=== PATIENT | male | born 1960 | race Caucasian/White ===

== ENCOUNTER 2023-08-10 17:20 | Emergency (ER) | payer BC, SELFPAY ==
[2023-08-10 17:29] VITALS: BP 113/65; BP 118/75; PULSE 66; PULSE 69; RESP 12; TEMP 36.5; O2SAT 95; O2SAT 98; BMI 28.5
--- NOTE | 2023-08-10 17:33 | ECG_ITS ---
Test Reason : NEAR SYNCOPE Blood Pressure : / mmHG Vent. Rate : 065 BPM Atrial Rate : 065 BPM P-R Int : 192 ms QRS Dur : 092 ms QT Int : 380 ms P-R-T Axes : 053 050 002 degrees QTc Int : 395 ms Normal sinus rhythm ST elevation in Anterior leads Cannot rule out Inferior infarct , age undetermined Abnormal ECG No previous ECGs available Referred By: Elizabeth Hollis Electronically Signed By:ERICA GILMORE
[2023-08-10 17:40] LABS: Glucose, Whole Blood 81 mg/dL (60-115)
--- NOTE | 2023-08-10 17:42 | ED_ITS ---
HPI - Syncope General Chief Complaint: Syncope Stated Complaint: near syncope, cool, pale, diaphoretic Time Seen by Provider: 08/10/23 17:23 Source: patient Mode of arrival: EMS Limitations: no limitations History of Present Illness HPI narrative: 62 yo male with PMH of HTN and HLD here with c/o not eating much today and having a couple of dea's hard lemonade's he was at a democr[employer] sitting on a porch and went to go inside to eat when he felt woozy and off like he was going to pass out. His vision narrowed. He did not have chest pain. A friend saw him and helped him to the ground No trauma. No LOC and was lowered to the ground. He denies change in medications, no recent CP/SOB , infections. He has no had this happen before right now he feels better just nauseated. Recently being worked up at [employer] for AA - just had US. complaint: other (near syncope) Onset (ago): minute(s) (just prior to a arrival ) Duration of episode: 2 -: minutes(s) Prodromal symptoms: vision changes and lightheaded Witnessed: Yes - by Bystander Context: standing up Injuries sustained associated with event: none Current symptoms: nausea Treatments prior to arrival: none Related Data Allergies Allergy/AdvReac Type Severity Reaction Status Date / Time pollen extracts Allergy Itchy Eyes Verified 08/10/23 17:32 Review of Systems 2 Review of Systems: Constitutional : No Fever, No Chills, No Fatigue ENT/Mouth : No sore throat, No Rhinorrhea Eyes: No Eye Pain, No Swelling, No Redness Cardiovascular : No Chest Pain, No SOB, No Dyspnea on Exertion Respiratory : No Cough, No Sputum Gastrointestinal : pos Nausea, No Vomiting, No Diarrhea, No abdominal Pain Genitourinary : No Dysuria, No Urinary Frequency, No Hematuria, Musculoskeletal : No joint pain, No Myalgias, No Joint Swelling Skin : No Skin Lesions, No rash Neuro : No Weakness, No Numbness, No Dizziness, no Headache, pos near syncope Psych : No Anxiety/Panic, No Depression Heme/Lymph: No Bruising, No Bleeding,No Lymphadenopathy Endocrine : No Polyuria, No Polydipsia All other systems reviewed and are negative [facility] Past Medical History Attestation statement: The following information was validated with the patient. Medical History Hyperlipidemia HTN (hypertension) Social History Social History (Updated 08/10/23 @ 17:46 by Elizabeth Hollis DO) Alcohol intake: current Patient Tobacco Use Status: Never used Tobacco Advance Directives: No Advance Directives Information Provided: Yes Physical Exam 2 Vital Signs: Vital Signs: Last Vital Signs Temp 97.7 F 08/10/23 17:29 Pulse 66 08/10/23 17:54 Resp 12 08/10/23 17:29 BP 131/77 08/10/23 17:54 Pulse Ox 99 08/10/23 18:23 O2 Del Method Room Air 08/10/23 18:23 BMI result Body Mass Index 28.5 Appearance: Alert. Oriented X3. No acute distress. Eyes: Pupils equal, round and reactive to light. ENT: Pharynx normal. Neck: Normal inspection. Neck supple. CVS: Normal heart rate and rhythm. Pulses normal. Respiratory: No respiratory distress. Breath sounds normal. Abdomen: Soft and nontender. Skin: Skin warm and dry. Normal skin color. Normal skin turgor. Extremities: No lower extremity edema. No calf ttp Neuro: Oriented X 3. No motor deficit. No sensory deficit. Course Course Course Narrative: repeat troponin negative can be DC at this time. feels better stable for DC Medications Administered Discontinued Medications Generic Name Dose Route Start Last Admin Trade Name Freq PRN Reason Stop Dose Admin Sodium Chloride 1,000 mls @ 999 mls/hr 08/10/23 17:45 08/10/23 18:21 Ns IV 08/10/23 18:45 999 mls/hr .Q1H1M QUANG Administration Ondansetron HCl 4 mg 08/10/23 17:39 08/10/23 18:20 Ondansetron Hcl 4 Mg/2 Ml Vial IVPUSH 08/10/23 17:40 4 mg ONCE ONE Administration Medical Decision Making Medical Decision Making MDM Narrative: 62 yo male with PMH of HTN, HLD here with c/o near syncopal event no trauma did not eat today did drink ETOH - he has no CP/SOB and no adominal pain he is not toxic and neuro intact. At this time suspect vasovagal syncope no seizure activity reported either and he denies infectious symptoms will obtain labs, hydrate and EKG. Differential Diagnosis Differential Diagnoses: The differential diagnosis associated with the presentation includes dehydration, hypotension, lack of CP/SOB makes VTE/ACS unlikely Admission/Observation Consideration of admission/observation: Escalation of care including admission/observation considered negative workup stable for DC Lab Data MDM Lab Attestation statement: I reviewed the patient's lab results. 08/10/23 17:47 08/10/23 17:47 Labs: Lab Results 08/10/23 08/10/23 08/10/23 Range/Units 17:31 17:47 19:50 WBC 7.6 (4.8-10.8) X10*3/uL RBC 4.32 L (4.60-5.80) X10*6/uL Hgb 13.8 L (14.0-18.0) g/dl Hct 40.1 L (42.0-52.0) % MCV 92.8 (80.0-98.0) fL MCH 31.9 (27.0-33.0) pg MCHC 34.4 (31.0-36.0) g/dl RDW 12.8 (11.0-16.0) % Plt Count 366 (160-400) X10*3/uL MPV 9.1 L (9.4-12.4) fL Immature Gran % (Auto) 0.4 (0.0-0.4) % Neut % (Auto) 52.6 (45-73) % Lymph % (Auto) 35.5 (20-40) % Gila % (Auto) 7.8 (2-11) % Eos % (Auto) 2.5 (0-4) % Baso % (Auto) 1.2 (0-2) % Lymph # (Auto) 2.7 (1.2-4.9) X10*3/uL Gila # (Auto) 0.6 (0.1-1.2) X10*3/uL Eos # (Auto) 0.2 (0.0-0.4) X10*3/uL Baso # (Auto) 0.1 (0.0-0.2) X10*3/uL Abs Immat Gran (auto) 0.03 (0.00-0.03) X10*3/uL Absolute Neuts (auto) 4.0 (2.0-8.3) x10*3/uL Absolute Nucleated RBC 0.000 (0.0-0.012) X10*3/uL Nucleated RBC % (auto) 0.0 (0.0-0.2) /100WBC Sodium 140 (135-145) mmol/L Potassium 4.3 (3.3-5.1) mmol/L Chloride 106 (96-108) mmol/L Carbon Dioxide 23 (22-29) mmol/L Anion Gap 15 (12-20) BUN 12 (9-16) mg/dL Creatinine 1.10 (0.5-1.4) mg/dL Estim Creat Clear Calc 88.0 Estimated GFR > 60 POC Glucose 81 (60-115) mg/dL Random Glucose 85 (60-115) mg/dL Calcium 9.4 (8.4-10.2) mg/dL Magnesium 2.0 (1.6-2.6) mg/dL Total Bilirubin 0.4 (0.0-1.0) mg/dL Direct Bilirubin 0.1 (0.0-0.5) mg/dL AST 19 (5-37) U/L ALT 33 (0-40) U/L Alkaline Phosphatase 74 (39-117) U/L Troponin I High Sens 3.6 4.0 (<3.5-35.0) ng/L Total Protein 7.1 (6.5-8.0) g/dL Albumin 4.1 (3.5-5.0) g/dL Independent Interpretation I performed an independent interpretation of an: EKG Interpretation: Rate: 65 Rhythm: NSR [place]: normal Normal P waves. Normal MERI. Normal QRS complex. ST T wave : nonspecific ST T wave changes V3 and V4 but no EUSEB[place], inverted T wave III and aVF qTC: normal prior studies: none The study has been interpreted contemporaneously by me. . Independent Historian Clinical information obtained from an independent historian. History obtained from or confirmed by: EMS External Record Review External record reviewed: Prior outpatient radiology Chronic Conditions Patient?s care impacted by: Hypertension Discharge Plan Discharge Clinical Impression: Near syncope Patient Disposition: Home, Self-Care Instructions: Near Syncope (ED) Additional Instructions: lab work normal, eat a good meal before bed. hold blood pressure medications in the AM. return for worsening symtoms, dizziness, chest pain, trouble breathing or any other concerns. stay with responsible adult
[2023-08-10 17:51] VITALS: BP 128/72; PULSE 62
[2023-08-10 17:51] LABS: MANUAL DIFF FLAG NO
[2023-08-10 17:52] VITALS: BP 134/79; PULSE 63
[2023-08-10 17:54] VITALS: BP 131/77; PULSE 66
[2023-08-10 18:07] LABS: Alanine Aminotransferase 33 U/L (0-40); Albumin Level 4.1 g/dL (3.5-5.0); Alkaline Phosphatase 74 U/L (39-117); Anion Gap 15 (12-20); Aspartate Amino Transferase 19 U/L (5-37); Bilirubin Direct 0.1 mg/dL (0.0-0.5); Bilirubin Total 0.4 mg/dL (0.0-1.0); Blood Urea Nitrogen 12 mg/dL (9-16); Calcium 9.4 mg/dL (8.4-10.2); Carbon Dioxide 23 mmol/L (22-29); Chloride 106 mmol/L (96-108); Estimated Glomerular Filt Rate > 60; Glucose Random 85 mg/dL (60-115); Potassium 4.3 mmol/L (3.3-5.1); Sodium 140 mmol/L (135-145); Total Protein 7.1 g/dL (6.5-8.0)
[2023-08-10 18:11] LABS: Basophils Absolute Auto 0.1 X10*3/uL (0.0-0.2); Basophils Percent Auto 1.2 % (0-2); Eosinophils Absolute Auto 0.2 X10*3/uL (0.0-0.4); Eosinophils Percent Auto 2.5 % (0-4); Hematocrit 40.1 % (42.0-52.0); Hemoglobin 13.8 g/dl (14.0-18.0); Imm Gran Abs Auto 0.03 X10*3/uL (0.00-0.03); Imm Gran Pct Auto 0.4 % (0.0-0.4); Lymphocytes Absolute Auto 2.7 X10*3/uL (1.2-4.9); Lymphocytes Percent Auto 35.5 % (20-40); Mean Corpuscular HGB Conc 34.4 g/dl (31.0-36.0); Mean Corpuscular Hemoglobin 31.9 pg (27.0-33.0); Mean Corpuscular Volume 92.8 fL (80.0-98.0); Mean Platelet Volume 9.1 fL (9.4-12.4); Monocytes Absolute Auto 0.6 X10*3/uL (0.1-1.2); Monocytes Percent Auto 7.8 % (2-11); Neutrophils Percent Auto 52.6 % (45-73); Platelet Count 366 X10*3/uL (160-400); Red Blood Count 4.32 X10*6/uL (4.60-5.80); Red Cell Distribution Width 12.8 % (11.0-16.0); White Blood Count 7.6 X10*3/uL (4.8-10.8)
[2023-08-10 18:12] LABS: Troponin-I High Sensitivity 3.6 ng/L (<3.5-35.0)
[2023-08-10] MEDS: ondansetron HCL 4 MG/2 ML VIAL IVPUSH (18:20)
[2023-08-10] MEDS: 0.9 % Sodium Chloride 1,000 ML 999 ML IV (18:21)
[2023-08-10 18:23] VITALS: O2SAT 99
--- OUTSIDE RECORDS SUMMARY | 2023-08-10 18:59 | XMS_ITS | Continuity of Care Document ---
Author Name Unknown Organization [facility] Address [address] [place] [id number]- Care Team Providers Care Dairy And Food Laboratory Assistant Name Role Phone Alvaro Nassar MD Primary Care Physician [place] [facility] [place]/21 [facility] [address] [place] [id number] Attending Physician: Admtr, Ar8 Admitting Physician: Admtr, Ar8 Referring Physician: Admtr, Ar8 Allergies, Adverse Reactions, Alerts No Known Medication Allergies Medications Golytely - oral powder for reconstitution 240 mL, By Mouth, Every 10 minutes, # 4,000 mL, 0 Refills, Maintenance, 12/08/20 15:38:00 EST, REC Powder, [facility] #[id number], Partial fill upon patient request if the prescription is for a schedule II opioid drug., 240 mL By Mouth Every 10 m... Start Date: 12/08/20 Status: Ordered NuLYTELY with Flavor Packs oral powder for reconstitution See Instructions, 240 mL By Mouth Every 15 minutes, # 4,000 mL, 0 Refills, Maintenance, 12/06/20 8:32:00 EST, [facility] #[id number], Partial fill upon patient request if the prescription is fora schedule II opioid drug., 240 mL By Mouth Every 1... Start Date: 12/06/20 Status: Ordered Social History Social History Type Response Sex Male
--- OUTSIDE RECORDS SUMMARY | 2023-08-10 18:59 | XMS_ITS | Continuity of Care Document ---
Author Name Unknown Organization [facility] Address [address] [place] [phone]- Care Team Providers Care Gopherman Name Role Phone Alvaro Nassar MD Primary Care Physician [place] [facility] [place]21 [facility] [address] [place] [id number] Allergies, Adverse Reactions, Alerts No Known Medication Allergies Medications Golytely - oral powder for reconstitution 240 mL, By Mouth, Every 10 minutes, # 4,000 mL, 0 Refills, Maintenance, 12/08/20 15:38:00 EST, REC Powder, [facility] #[id number], Partial fill upon patient request if the prescription is for a schedule II opioid drug., 240 mL By Mouth Every 10 m... Start Date: 12/08/20 Status: Ordered NuLYTELY with Flavor Packs oral powder for reconstitution See Instructions, 240 mL By Mouth Every 15 minutes, # 4,000 mL, 0 Refills, Maintenance, 12/06/20 8:32:00 EST, [facility] #[id number], Partial fill upon patient request if the prescription is fora schedule II opioid drug., 240 mL By Mouth Every 1... Start Date: 12/06/20 Status: Ordered Social History Social History Type Response Sex Male
--- OUTSIDE RECORDS SUMMARY | 2023-08-10 18:59 | XMS_ITS | Continuity of Care Document ---
Author Name Unknown Organization [facility] Address [address] [place] [phone]- Care Team Providers Care Anime Designer Name Role Phone Alvaro Nassar MD Primary Care Physician [place] [facility] [place]20 - 01/07/21 [facility] [address] [place] [id number] Allergies, Adverse Reactions, Alerts No Known Medication Allergies Medications Golytely - oral powder for reconstitution 240 mL, By Mouth, Every 10 minutes, # 4,000 mL, 0 Refills, Maintenance, 12/08/20 15:38:00 EST, REC Powder, [facility] #[id number], Partial fill upon patient request if the prescription is for a schedule II opioid drug., 240 mL By Mouth Every 10 m... Start Date: 12/08/20 Status: Ordered NuLYTELY with Flavor Packs oral powder for reconstitution See Instructions, 240 mL By Mouth Every 15 minutes, # 4,000 mL, 0 Refills, Maintenance, 12/06/20 8:32:00 EST, [facility] #[id number], Partial fill upon patient request if the prescription is fora schedule II opioid drug., 240 mL By Mouth Every 1... Start Date: 12/06/20 Status: Ordered Social History Social History Type Response Sex Male
--- OUTSIDE RECORDS SUMMARY | 2023-08-10 18:59 | XMS_ITS | Patient Health Record ---
Author Name Unknown Organization [facility] Address [address] [place] [address] Care Team Providers Care Willow Worker Name Role Phone HARVEYPEREZ Tenorio Primary Care Provider [phone] ALLERGIES No Known Allergies RESULTS Component Value Reference Range Notes CT Chest w/o contrast Reviewed date:05/24/2023 11:29:45 AM Interpretation: Performing Lab: Notes/Report: Echocardiogram Reviewed date:06/12/2023 08:19:27 AM Interpretation: Performing Lab: Notes/Report: REASON FOR REFERRAL Reason low back pain Diagnosis 1 Low back pain, unspe cified (M54.50) Referral Organization [facility] Referring Provider First Name PEREZ Referring Provider Last Name JIA Referring Provider Speciality Internal M edicine Referred Provider Specialty Physical The rapist General Notes Faxed to [facility] Heather 06/12/2023 11:41:13 AM > Clinical Notes called NARINDER pt. is sc heduled on 06/28/2023 2:30pm at [address] [place] [address]. Spoke to pt. and pt. is aware.Scarlet Ceasar 06/27/2023 02:30:26 PM > Referral Priority Routine MEDICATIONS Medication SIG (Take, Route, Frequency, Duration) Notes Start Date End Date Status tiZANidine HCl 4 MG 1 tablet as needed O rally Three times a day for 7 days 06/03/2023 Active Ibuprofen 200 MG 1 tablet with food o r milk as needed Orally 2 times a day Active amLODIPine Besylate 10 MG 1 tablet Orall y Once a day for 90 days Active Atorvastatin Calcium 40 MG 1 tablet Oral ly Once a day for 90 days Active SOCIAL HISTORY Tobacco Use: Social History Observation Description Date Details (start date - stop date) Current Smoker NA - NA Sex Assigned At : Social History Observation Description Sex Assigned At Unknown Tobacco Use/Smoking Question Answer Notes Are you a current smoker How often do you smoke cigarettes? every day How many cigarettes a day do you smoke? 09-30 Alcohol Screen (Audit-C) Question Answer Notes Did you have a drink contain ing alcohol in the past year? Yes How often did you have a dri nk containing alcohol in the past year? Monthly or less (1 point) How many drinks did you have on a typical day when you were drinking in the past year? 1 or 2 drinks (0 point) Points 1 Interpretation Negative PROBLEMS Problem Type ICD Code Onset Dates Problem Status W/U Status Risk SNOMED Code Notes Problem Mixed hyperlipidemia (E78.2) Active confirmed Mixed hyperlipidemia (135231603) Problem Nicotine dependence, cigarettes, uncomplicated (F17.210) Active confirmed Tobacco user (637313042) Problem Essential (primary) hypertension (I10) Active confirmed Essential hypertension (88019865) Problem Emphysema, unspecified (J43.9) Active confirmed Emphysema (51644577) Problem Pain in left knee (M25.562) Active confirmed Arthralgia of t he lower leg (427518356) Problem Encounter for general adult medical examination without abnormal findings (Z00.00) Active confirmed Adult heal th examination (893433693) VITAL SIGNS Heart Rate 87 /min 05/22/2023 Temperature 96.9 degrees Fahrenheit 05/22/2023 Blood pressure diastolic 80 mm Hg 05/22/2023 Height 71 in 05/22/2023 Blood pressure systolic 130 mm Hg 05/22/2023 Weight 209 lbs 05/22/2023 BMI 29.15 kg/m2 05/22/2023 Encounters Encounter Location Date Provider Diagnosis [facility] [address] [place] [address] 10/23/2022 [facility] [address] [place] [address] 05/22/2023 [facility] Essential (primary) hypertension I10 ; Mixed hyperlipidemia E78.2 ; Emphysema, unspecified J43.9 and Nicotine dependence, cigarettes, uncomplicated F17.210 [facility] [address] [place] [address] 05/07/2023 [facility] [address] [place] [address] 06/12/2023 [facility] [address] [place] [address] 06/13/2023 [facility] [address] [place] [address] 09/25/2022 [facility] [address] [place] [address] 06/03/2023 [facility] [address] [place] [address] 06/03/2023 [facility] [address] [place] [address] 06/12/2023 [facility] [address] [place] [address] 06/12/2023 [facility] Encounter Date Diagnosis Assessment Notes Treatment Notes Treatment Clinical Notes 05/22/2023 Essential (primary) hypertension (ICD-10 - I10) 05/22/2023 Mixed hyperlipidemia (ICD-10 - E78.2) 05/22/2023 Emphysema, unspecified (ICD-10 - J43.9) 05/22/2023 Nicotine dependence, cigarettes, uncomplicated (ICD-10 - F17.210) PLAN OF TREATMENT Pending Test Test Name Order Date CT Chest w/o contrast 05/28/2024 Future Test Test Name Order Date COMPREHENSIVE METABOLIC PANEL 04/18/2022 HEMOGLOBIN A1C WITH EST GLUCOSE 04/18/20 LIPID PANEL 04/18/2022 MICROALBUMIN, URINE 04/18/2022 PSA, SCREEN 04/18/2022 Next Appt Details Provider Name:PEREZ RO , 09/04/2023 08:15:00 AM, [address] [place], [address], Insurance Providers Payer Name Payer Address Payer Phone Subscriber Number Group Number Insured Name Patient Relationship to Insured Coverage Start Date Coverage End Date [facility] [address] [place] [phone] [id number] Alan Puga Self - patient is the insured MEDICAL (GENERAL) HISTORY Medical History History ICD Code Hyperlipidemia
--- OUTSIDE RECORDS SUMMARY | 2023-08-10 18:59 | XMS_ITS | Continuity of Care Document ---
Author Name Unknown Organization [facility] Address [address] [place] [address]- Care Team Providers Care Printing Machine Mechanic Name Role Phone Alvaro Nassar MD Primary Care Physician Encounter [facility] [place] Date(s): 12/27/20 - 12/27/[address] [address] Discharge Disposition: A-D/C Home Attending Physician: Laxmi Hawkins MD Admitting Physician: Laxmi Hawkins MD Referring Physician: Laxmi Hawkins MD Allergies, Adverse Reactions, Alerts No Known Medication Allergies Medications Golytely - oral powder for reconstitution 240 mL, By Mouth, Every 10 minutes, # 4,000 mL, 0 Refills, Maintenance, 12/08/20 15:38:00 EST, REC Powder, [facility][id number], Partial fill upon patient request if the prescription is for a schedule II opioid drug., 240 mL By Mouth Every 10 m... Start Date: 12/08/20 Status: Ordered NuLYTELY with Flavor Packs oral powder for reconstitution See Instructions, 240 mL By Mouth Every 15 minutes, # 4,000 mL, 0 Refills, Maintenance, 12/06/20 8:32:00 EST, [facility] #[id number], Partial fill upon patient request if the prescription is fora schedule II opioid drug., 240 mL By Mouth Every 1... Start Date: 12/06/20 Status: Ordered Procedures Procedure Date Related Diagnosis Body Site Status Colonoscopy 12/27/20 Completed Vital Signs Most recent to oldest [Reference Range]: 1 2 3 Height 185.4 cm (12/27/20 7:34 AM) Weight 102.1 kg (12/27/20 7:34 AM) Oxygen Saturation [94-100 %] 99 % (12/27/20 9:25 AM) 97 % (12/27/20 9:20 AM) 99 % (12/27/20 7:34 AM) Pulse Rate [55-90 bpm] 64 bpm (12/27/20 7:34 AM) Body Mass Index [18.5-24.99] 29.7 *H* (12/27/20 7:34 AM) Blood Pressure [90-138/55-84 mm Hg] 153/84mm Hg *H* (12/27/20 9:25 AM) 146/82mm Hg *H* (12/27/20 9:20 AM) 160/78mm Hg *H* (12/27/20 7:34 AM) Respiratory Rate [16-30 br/min] 18 br/min (12/27/20 9:25 AM) 14 br/min *L* (12/27/20 9:20 AM) 14 br/min *L* (12/27/20 7:34 AM) Temperature [96.8-100.4 DegF] 97.1 DegF (12/27/20 7:34 AM) Mode of Delivery (Oxygen) Room air (12/27/20 7:34 AM) Blood pressure sites Arm, left (12/27/20 9:25 AM) Arm, left (12/27/20 9:20 AM) Arm, left (12/27/20 7:34 AM) Temperature Route Temporal (12/27/20 7:34 AM) Social History Social History Type Response Sex Male
[2023-08-10 20:47] VITALS: BP 149/83; PULSE 72; RESP 18; TEMP 36.6; O2SAT 95
== END 2023-08-10 20:54 | disposition home or self-care (01) ==
PROVIDERS: Emergency Provider Emergency Medicine; PCP Hospitalist
DX: R55 Syncope and collapse (principal); I10 Essential (primary) hypertension; E78.5 Hyperlipidemia, unspecified
CPT/HCPCS: 36415; 80048; 80076; 82947; 83735; 84484; 85025; 93005; 96360; 96361; 96374; 99284; 99285; J2405

== ENCOUNTER 2025-05-15 08:15 | Emergency (ER) | payer BC, SELFPAY ==
--- NOTE | ~2025-05-15 | XR_ITS ---
CLINICAL HISTORY: fall ; duplicate lateral Y image is due to computer technicalities, not a repeated xray image. Four views of the right shoulder Comparison: None provided Findings: No fractures or dislocations. Moderate degenerative changes at the glenohumeral and acromioclavicular joints. No erosions. No radiopaque foreign body. IMPRESSION: Moderate degenerative changes. No fracture or malalignment. This document has been electronically signed by: Sam Amato MD on 05/15/2025 09:01:56
[2025-05-15 08:17] VITALS: BP 162/85; PULSE 73; RESP 18; TEMP 36.4; O2SAT 98; BMI 27.7
--- NOTE | 2025-05-15 08:58 | ED_ITS ---
HPI - Fall General Chief Complaint: Fall Stated Complaint: fall r shoulder inj Time Seen by Provider: 05/15/25 08:58 Source: patient and RN notes reviewed Mode of arrival: ambulatory Limitations: no limitations History of Present Illness ED Provider: Maria C Hilton PA-C [facility] Narrative: This is a 64-year-old male, with a past medical history of hypertension hyperlipidemia, who presents emergency department with concerns of right shoulder pain status post mechanical fall which occurred last night. Patient states that while he was trying to on pack his roof rack on his car he accidentally fell onto his right shoulder. He denies hitting his head or LOC. he also reports he accidentally lacerated his right middle finger during this. He has been taking Tylenol for his symptoms which has provided him with some relief. His tetanus is up-to-date, states that he last received at 1 year ago. He soaked the wound with soapy water, and applied bacitracin to the area. Denies previous injury to his right shoulder in the past. He reports pain with movement of his right shoulder. No other complaints or concerns at this time. MD complaint: fall Onset (ago): day(s) Fall from: standing Fall witnessed: no Place fall occurred: home Loss of consciousness: none Prolonged down time: no Symptoms prior to fall: none Context: tripped/slipped Related Data Previous Rx's ?Medication ?Instructions ?Recorded acetaminophen 500 mg tablet 1,000 mg (2 x 500 mg) PO Q 8H PRN 05/15/25 (Tylenol Extra Strength) pain #30 tabs ibuprofen 600 mg tablet 600 mg PO Q6H PRN pain #30 t abs 05/15/25 oxycodone 5 mg tablet 5 mg PO Q6H PRN severe pain (scale 05/15/25 score 7-10) #10 tabs Allergies Allergy/AdvReac Type Severity Reaction Status Date / Time pollen extracts Allergy Itchy Eyes Verified 05/15/25 08:19 Review of Systems Review of Systems: Yes all other systems are reviewed and are negative Constitutional: Constitutional: Reports as per [facility] Past Medical History Attestation statement: The following information was validated with the patient. Medical History Hyperlipidemia HTN (hypertension) Social History Social History (Reviewed 05/15/25 @ 09:08 by ROBERT Dempsey Alcohol intake: current Patient Tobacco Use Status: Never used Tobacco Advance Directives: Yes Advance Directives Information Provided: Yes Advance Directives on File: No Physical Exam Vital Signs: Vital Signs: Last Vital Signs Temp 97.6 F 05/15/25 08:17 Pulse 73 05/15/25 08:17 Resp 18 05/15/25 08:17 BP 162/85 H 05/15/25 08:17 Pulse Ox 98 05/15/25 08:17 O2 Del Method Room Air 05/15/25 08:17 BMI result Body Mass Index 27.7 Const: General: cooperative, comfortable and no acute distress Orientation/consciousness: patient oriented x3 Limitations: no limitations HEENT: Head: Yes normal to inspection, Yes normocephalic and Yes atraumatic Ears: hearing grossly normal bilaterally General nose exam: Normal external nose present Face and sinus: Yes normal facial exam Mouth: Normal oral and palatal mucosa present, oropharynx normal and moist mucous membranes Throat: Yes posterior oropharynx normal Eyes: General: appearance normal, both eyes and all related structures Eyelids: Yes eyelids normal Conjunctivae: conjunctivae normal Sclerae: sclerae normal Pupils: Equal, round and reactive pupils present EOM: EOMs intact bilaterally Neck: Neck: Yes normal visual inspection, Yes full ROM and Yes no lymphadenopathy Lymphatic: no lymphadenopathy noted Chest: Chest palpation & inspection: normal inspection of the chest Resp: Effort & Inspection: normal respiratory effort and able to speak in complete sentences Auscultation: clear to auscultation bilaterally, no crackles, no rales, no rhonchi and no wheezes Cardio: Rate: regular rate Rhythm: regular rhythm Heart sounds: S1 normal heart sound present and S2 normal heart sound present GI: Inspection: Yes normal to inspection Skin: General skin exam: no rashes or lesions noted Trauma: no lacerations or abrasions Wounds: no wounds Neuro: General: patient oriented x3 and moves all extremities Cranial nerves: Yes Equal, round and reactive pupils present Extrem: Other: Right shoulder with no obvious bony deformity or swelling. He has tenderness palpation at the proximal humerus, unable to actively perform any range of motion test secondary to pain. Strong radial pulse. No open wounds or lacerations. Clavicle is nontender. Pain with passive range of motion of the shoulder adduction to proximally 40? and forward flexion to approximately 20?. Patient does have ? Lump noted to the distal bicep, he states that he has had this for a long time, this is not new forearm. No tenderness or surrounding erythema or warmth, negative hook test Right middle finger palmar aspect, there is a 2 cm superficial laceration noted, no active bleeding. General: Yes normal to inspection Right upper extremity: normal to inspection Left upper extremity: normal to inspection Right lower extremity: normal to inspection Left lower extremity: normal to inspection Medications Administered Discontinued Medications Generic Name Dose Route Start Last Admin Trade Name Abraham PRN Reason Stop Dose Admin Ibuprofen 600 mg 05/15/25 09:06 05/15/25 09:10 Ibuprofen 600 Mg Tablet PO 05/15/25 09:07 600 mg ONCE ONE Administration Medical Decision Making Medical Decision Making MDM Narrative: This is a 64-year-old male who presents emergency department with complaints of right shoulder pain status post mechanical fall which occurred yesterday. On arrival, patient's blood pressure elevated at 162/85, all other vital signs within normal limits. Denies head strike or LOC. He is not on anticoagulation. Patient with tenderness palpation along the proximal humerus, unable to perform any range of motion test secondary to pain. X-rays were obtained, awaiting official report. Differential diagnoses include fracture, contusion, sprain, strain. Patient also has a superficial laceration noted to his middle 3rd finger, no active bleeding or oozing. Will soak finger with Betadine and saline, and dressed with Steri-Strips. His tetanus is up-to-date. 1023 - x-rays revealed no bony abnormalities. Wound was rinsed with Betadine and saline. Bacitracin applied to wound. Does not require any additional closing. Right shoulder placed in sling. Stressed the importance of taking shoulder out of sling multiple times per day to prevent adhesive capsulitis. Discharged on ibuprofen and Tylenol, and advised to follow-up with Orthopedics, advised to call on Saturday. Also discharged with oxycodone, small prescription, given adverse side effects and risks and benefits of taking this. He understands and agrees with plan. Patient stable for discharge. Differential Diagnosis Differential Diagnoses: The differential diagnosis associated with the presentation includes See above Radiology Impression Discussion of test interpretation with radiology: I have reviewed the radiologist's reading. Radiologist Impression: CLINICAL HISTORY: fall ; duplicate lateral Y image is due to computer techni calities, not a repeated xray image. Four views of the right shoulder Comparison: None provided Findings: No fractures or dislocations. Moderate degenerative changes at the glenohumeral and acromioclavicular joints. No erosions. No radiopaque foreign body. IMPRESSION: Moderate degenerative changes. No fracture or malalignment. This document has been electronically signed by: Sam Amato MD on 05/15/2025 09:01:56 Dictated By: Sam Amato MD Discharge Plan Discharge Clinical Impression: Contusion of shoulder, right, Laceration of finger Patient Disposition: Home, Self-Care Instructions: Contusion in Adults (ED) Additional Instructions: You were seen in the emergency department due to right shoulder pain. Your x-rays do not show any bony abnormalities. Please rest, ice, and take prescribed medication as directed. Use sling as needed for comfort. Please take your arm out of the sling multiple times a day and perform gentle [id number] activities to prevent frozen shoulder. Alternate between ibuprofen and Tylenol. Ibuprofen 600 mg every 6 hours with food, 2 hours later take Tylenol 1 g (you may take 1 g 8 hours later). Oxycodone is a strong pain medication, please use sparingly, please be advised that this is an addictive medication therefore should only be reserved for severe pain only. Please also be advised that this can cause constipation, increased fiber in your diet. Please also be advised that this can cause drowsiness, do not drink alcohol or drive while taking this medication. Please follow-up with the engine specialist, call on Saturday to make an appointment. If any new or worsening symptoms occur including but not limited to chest pain or shortness of breath, severe headache, dizziness, please seek emergent care. You also have a slight wound noted to your finger, please keep area clean and dry. Watch for any increased redness, swelling, or pain. Keep wound clean and dry. You may wash with soap and water. You may also apply bacitracin to the area to prevent infection. Prescriptions: New ibuprofen 600 mg tablet 600 mg PO Q6H PRN (Reason: pain) Qty: 30 0RF acetaminophen [Tylenol Extra Strength] 500 mg tablet 1,000 mg PO Q8H PRN (Reason: pain) Qty: 30 0RF oxycodone 5 mg tablet 5 mg PO Q6H PRN (Reason: severe pain (scale score 7-10)) Qty: 10 0RF Rx Instructions: Partial Fill upon patient request. Referrals: [facility] [Provider Group] Stand Alone Forms: Work/School Release Print Language: [place]ian
[2025-05-15 10:37] VITALS: BP 162/85; PULSE 73; RESP 18; TEMP 36.4; O2SAT 98
== END 2025-05-15 10:38 | disposition home or self-care (01) ==
PROVIDERS: Emergency Provider Emergency Medicine; PCP Hospitalist
DX: S40.011A Contusion of right shoulder, initial encounter (principal); I10 Essential (primary) hypertension; E78.5 Hyperlipidemia, unspecified; S61.219A Laceration without foreign body of unspecified finger without damage to nail, initial encounter; W19.XXXA Unspecified fall, initial encounter; Y93.89 Activity, other specified; Y92.9 Unspecified place or not applicable; Y99.9 Unspecified external cause status
CPT/HCPCS: 73030; 99283; 99284

== ENCOUNTER → 2025-05-15 08:22 | Outpatient (BNV) | payer BC, SELFPAY | PROVIDERS: Emergency Provider Emergency Medicine; PCP Hospitalist; Visit Provider Radiology Vascular & Interventional Radiology | DX: M19.011 Primary osteoarthritis, right shoulder (principal) | CPT/HCPCS: 73030 ==